=== PATIENT | male | born 1975 | race Asian ===

== ENCOUNTER → 2018-04-29 | Outpatient (REF) | payer MEDICARE, MEDICAID ==
[~2018-04-29] MED LIST: ACTOS30 MG PO; ACTOS45 M1 PO; ACTOS45 MG PO; ALDACTONE25 MG PO; AMARYL2 MG PO; BD INSULIN XX; CAPTOPRIL50 MG PO; CARDIZEM CD240 MG PO; CARDURA4 MG PO; CLONIDINE HCL0.2 MG PO; CLONIDINE0.1 MG PO; DIOVAN320 MG PO; DYAZIDE1 CAP PO; GLIPIZIDE10 MG PO; GLUCOPHAGE1000 MG PO; HYDRALAZINE50 MG PO; HYDROCHLOROT25 MG PO; KLOR-CON 1010 ME1 PO; LANTUS100 MG/ML SC; LASIX 40 MG TAB40 MG PO; LISINOPRIL40 MG PO; LOSARTAN POT100 MG PO; LOVASTATIN20 M1 PO; METOPROL TAR100 M1 PO; NOVOFINE32 GX6MM SC; PROCARDIA XL60 MG PO; TOPROL XL100 MG PO; TRIAM/HCTZ1 CAP PO; TRIAMT/HCTZ1 TAB PO; VICTOZA18 MG/3 ML SC
[2018-04-29 08:14] LABS: HEMATOCRIT 51.1 % (39.0-50.0); IMMATURE GRANULOCYTES 0.4 % (0.0-5.0); MEAN CELL VOLUME 88.4 fL CALC (80.0-100.0); MEAN CORPUSCULAR HGB 29.4 pG CALC (26.0-32.0); MEAN CORPUSCULAR HGB CONC 33.3 g/L CALC (32.0-36.0); NEUT# 4.8 thou/uL (1.82-7.42); RED BLOOD COUNT 5.78 mill/uL (4.70-6.10); RED CELL DISTRI WIDTH 12.4 % (11.5-15.5)
[2018-04-29 09:17] LABS: ALBUMIN 3.8 g/dL (3.2-5.0); ALKALINE PHOSPHATASE 69 u/l (38-126); ANION GAP 14 (6-22 (CALC)); BILIRUBIN, TOTAL 0.7 mg/dL (0.0-1.4); BUN 16 mg/dL (9-20); BUN/CREATININE RATIO 16 (12-20 (CALC)); CALCULATED LDLCHOLESTEROL 104 mg/dL (62-129 (CALC)); CARBON DIOXIDE 23 mmol/l (22-30); CHLORIDE 108 mmol/l (95-108); CHOLESTEROL HDL RATIO 4.3 (<4.4 (CALC)); GFR > 60 ML/MIN (>=60 (CALC)); GFR FOR AFR.AMER. > 60 ML/MIN (>=60 (CALC)); HDL CHOLESTEROL 41 mg/dL (>=40); SGOT/AST 14 u/l (17-59); SODIUM 142 mmol/l (137-146); TOTAL CHOLESTEROL 175 mg/dl (0-199); TOTAL PROTEIN 6.5 g/dL (6.3-8.2); TOTAL TRIGLYCERIDES 152 mg/dl (30-149); VLDL CHOLESTROL 30 mg/dl (5-56 (CALC))
== END | disposition home or self-care (01) ==
LOC: LAB 06:51
PROVIDERS: ATTEND Nurse Practitioner Family
DX: I10 Essential (primary) hypertension (principal); E11.9 Type 2 diabetes mellitus without complications; E78.2 Mixed hyperlipidemia

== ENCOUNTER 2019-09-08 06:49 | Day surgery (SDC) | payer MEDICARE, MEDICAID ==
[~2019-09-08] VITALS: Ht 170.2 cm; Wt 106.1 kg
[~2019-09-08 06:49] MED LIST changes: +BYDUREON2 MG SC; +FISH OIL1000 MG PO; +TERAZOSIN5 MG PO; +TRESIBA100 UNIT/M SC; +VITAMIN C500 M5 PO
[2019-09-08 10:08] VITALS: BP 163/93
== END 2019-09-08 10:25 | disposition home or self-care (01) ==
LOC: ORM 06:49
PROVIDERS: ATTEND Urology
PROC: 0VTTXZZ Resection of Prepuce, External Approach (ICD-10-PCS; principal; 2019-09-08)
DX: N47.1 Phimosis (principal); F84.0 Autistic disorder; I10 Essential (primary) hypertension; E11.51 Type 2 diabetes mellitus with diabetic peripheral angiopathy without gangrene; E88.81 Metabolic syndrome and other insulin resistance; E66.01 Morbid (severe) obesity due to excess calories; Z68.35 Body mass index [BMI] 35.0-35.9, adult; Z79.4 Long term (current) use of insulin

== ENCOUNTER 2020-04-27 16:11 | Emergency (ER) | payer MEDICARE, MEDICAID ==
[~2020-04-27] VITALS: Ht 170.2 cm; Wt 122.0 kg
[2020-04-27 18:13] LABS: HEMATOCRIT 43.5 % (39.0-50.0); HEMOGLOBIN 14.3 g/dl (14.0-18.0); IMMATURE GRANULOCYTES 0.4 % (0.0-5.0); MEAN CORPUSCULAR HGB 28.3 pG CALC (26.0-32.0); MEAN CORPUSCULAR HGB CONC 32.9 g/dL CAL (32.0-36.0); NEUT# 11.65 thou/uL (1.82-7.42); RED BLOOD COUNT 5.06 mill/uL (4.70-6.10); RED CELL DISTRI WIDTH 13.2 % (11.5-15.5)
[2020-04-27 18:26] LABS: ALBUMIN 3.6 g/dL (3.2-5.0); ALKALINE PHOSPHATASE 78 u/l (38-126); ANION GAP 11 (6-22 (CALC)); BILIRUBIN, TOTAL 0.6 mg/dL (0.0-1.4); BUN 15 mg/dL (9-20); BUN/CREATININE RATIO 11 (12-20 (CALC)); CARBON DIOXIDE 26 mmol/l (22-30); CHLORIDE 103 mmol/l (95-108); CREATININE 1.4 mg/dL (0.7-1.3); GFR 55 ML/MIN (>=60 (CALC)); GFR FOR AFR.AMER. > 60 ML/MIN (>=60 (CALC)); LIPASE 92 u/l (23-300); POTASSIUM 3.9 mmol/l (3.5-5.1); SGOT/AST 20 u/l (17-59); SODIUM 136 mmol/l (137-146); TOTAL PROTEIN 6.6 g/dL (6.3-8.2)
[2020-04-27 18:27] LABS: ACT PARTIAL THROMBO TIME 24.1 SECONDS (20.0-32.5); PROTHROMBIN TIME 10.4 SECONDS (9.0-12.5)
[2020-04-27 19:32] LABS: URINE BILIRUBIN - DIPSTICK NEGATIVE (NEGATIVE); URINE BLOOD DIPSTICK SMALL (NEGATIVE); URINE COLOR YELLOW; URINE GLUCOSE - DIPSTICK 250 mg/dL (NEGATIVE); URINE KETONE NEGATIVE (NEGATIVE); URINE LEUK ESTERASE NEGATIVE (NEGATIVE); URINE NITRITE - DIPSTICK NEGATIVE (Negative); URINE PH 6.5 (4.5-8.0); URINE PROTEIN - DIPSTICK >=300 mg/dL (NEG-TRACE); URINE UROBILINOGEN - DIPSTICK 0.2 E.U./dL (0.2)
[2020-04-27 19:45] LABS: URINE BACTERIA FEW hpf; URINE SQUAMOUS EPITHELIAL CELL FEW EPI/hpf (0-FEW)
[2020-04-27] MEDS ORDERED: AZITHROMYCIN500 MG PO (20:03)
[2020-04-27 20:25] VITALS: BP 160/94
== END 2020-04-27 20:25 | disposition home or self-care (01) ==
LOC: ED 16:11
DX: J18.9 Pneumonia, unspecified organism (principal); E11.9 Type 2 diabetes mellitus without complications; I10 Essential (primary) hypertension; F41.9 Anxiety disorder, unspecified; F84.0 Autistic disorder; R62.50 Unspecified lack of expected normal physiological development in childhood; Z79.4 Long term (current) use of insulin
CPT/HCPCS: Q9967

== ENCOUNTER 2020-08-08 12:16 | Emergency (ER) | payer MEDICARE, MEDICAID ==
[~2020-08-08] VITALS: Ht 170.2 cm; Wt 112.7 kg
[~2020-08-08 12:16] MED LIST changes: +AZITHROMYCIN500 MG PO
[2020-08-08 12:54] LABS: HEMATOCRIT 41.7 % (39.0-50.0); HEMOGLOBIN 13.6 g/dl (14.0-18.0); IMMATURE GRANULOCYTES 0.5 % (0.0-5.0); MEAN CELL VOLUME 86.2 fL CALC (80.0-100.0); MEAN CORPUSCULAR HGB 28.1 pG CALC (26.0-32.0); MEAN CORPUSCULAR HGB CONC 32.6 g/dL CAL (32.0-36.0); NEUT# 10.25 thou/uL (1.82-7.42); RED BLOOD COUNT 4.84 mill/uL (4.70-6.10); RED CELL DISTRI WIDTH 13.2 % (11.5-15.5)
[2020-08-08] MEDS ORDERED: OZEMPIC2 MG/1.5 M (13:01)
[2020-08-08] MEDS ORDERED: LASIX 20 MG TAB20 MG PO (13:02)
[2020-08-08] MEDS ORDERED: TERAZOSIN1 MG PO (13:02)
[2020-08-08] MEDS ORDERED: DOCUSATE CAL240 MG PO (13:03)
[2020-08-08 13:13] LABS: ALBUMIN 3.3 g/dL (3.2-5.0); BILIRUBIN, TOTAL 0.5 mg/dL (0.0-1.4); CREATININE 1.6 mg/dL (0.7-1.3); POTASSIUM 4.1 mmol/l (3.5-5.1); TOTAL PROTEIN 6.5 g/dL (6.3-8.2)
[2020-08-08 13:36] LABS: URINE BILIRUBIN - DIPSTICK NEGATIVE (NEGATIVE); URINE BLOOD DIPSTICK TRACE-LYSED (NEGATIVE); URINE COLOR YELLOW; URINE GLUCOSE - DIPSTICK 250 mg/dL (NEGATIVE); URINE KETONE NEGATIVE (NEGATIVE); URINE LEUK ESTERASE NEGATIVE (NEGATIVE); URINE PROTEIN - DIPSTICK >=300 mg/dL (NEG-TRACE); URINE SPECIFIC GRAVITY 1.025; URINE UROBILINOGEN - DIPSTICK 0.2 E.U./dL (0.2)
[2020-08-08 13:38] LABS: URINE EPITHELIAL CELLS FEW EPI/hpf (0-FEW); URINE MUCUS MODERATE hpf (NONE-FEW); URINE NITRITE - DIPSTICK NEGATIVE (Negative); URINE RBC 0-2 RBC/hpf (0-5)
[2020-08-08] MEDS ORDERED: ATIVAN0.5 MG PO (16:32)
[2020-08-08 16:38] VITALS: BP 170/84
== END 2020-08-08 16:48 | disposition home or self-care (01) ==
LOC: ED 12:16
PROVIDERS: Emergency Medicine
DX: F41.9 Anxiety disorder, unspecified (principal); I10 Essential (primary) hypertension; E11.9 Type 2 diabetes mellitus without complications; F84.0 Autistic disorder; Z79.4 Long term (current) use of insulin; Z20.822 Contact with and (suspected) exposure to COVID-19
CPT/HCPCS: Q9967

== ENCOUNTER 2022-09-26 14:50 | Inpatient (IN) | payer MEDICARE, MEDICAID ==
[2022-09-26] VITALS (28 sets, daily range): BP systolic 149–183; BP diastolic 89–112
[~2022-09-26] VITALS: Ht 170.2 cm; Wt 113.2 kg
[~2022-09-26 14:50] MED LIST changes: +ATIVAN0.5 MG PO; +DOCUSATE CAL240 MG PO; +LASIX 20 MG TAB20 MG PO; +OZEMPIC2 MG/1.5 M; +TERAZOSIN1 MG PO
[2022-09-26 16:38] LABS: BASO% 0.6 % (0-3); HEMATOCRIT 38.2 % (39.0-50.0); HEMOGLOBIN 12.8 g/dl (14.0-18.0); IMMATURE GRANULOCYTES 0.2 % (0.0-5.0); LYMPH% 9.6 % (15-41); MEAN CORPUSCULAR HGB 29.5 pG CALC (26.0-32.0); MEAN CORPUSCULAR HGB CONC 33.5 g/dL CAL (32.0-36.0); MONO% 6.7 % (2-13); NEUT# 7.41 thou/uL (1.82-7.42); NEUT% 79.9 % (42-76); RED BLOOD COUNT 4.34 mill/uL (4.70-6.10); RED CELL DISTRI WIDTH 12.4 % (11.5-15.5)
[2022-09-26 16:45] LABS: ALBUMIN 3.6 g/dL (3.2-5.0); POTASSIUM 4.4 mmol/l (3.5-5.1); TOTAL PROTEIN 6.6 g/dL (6.3-8.2)
[2022-09-26 16:47] LABS: BILIRUBIN, TOTAL 0.8 mg/dL (0.2-1.3); CREATININE 4.4 mg/dL (0.7-1.3)
[2022-09-26 16:57] LABS: PROTHROMBIN TIME 9.8 SECONDS (9.0-12.5)
[2022-09-26 17:21] LABS: URINE BILIRUBIN - DIPSTICK NEGATIVE (NEGATIVE); URINE COLOR YELLOW; URINE GLUCOSE - DIPSTICK NEGATIVE (NEGATIVE); URINE KETONE Negative (NEGATIVE); URINE PH 6.5 (4.5-8.0); URINE PROTEIN - DIPSTICK >=300 mg/dL (NEG-TRACE); URINE UROBILINOGEN - DIPSTICK 0.2 E.U./dL (0.2)
[2022-09-26 17:22] LABS: URINE BLOOD DIPSTICK SMALL (NEGATIVE); URINE LEUK ESTERASE NEGATIVE (NEGATIVE); URINE NITRITE - DIPSTICK NEGATIVE (Negative)
[2022-09-26 17:27] LABS: URINE WBC 0-2 WBC/hpf (0-5)
[2022-09-26] MEDS ORDERED: FARXIGA5 MG PO (21:03)
[2022-09-26] MEDS ORDERED: COREG3.125 MG PO (21:03)
[2022-09-26] MEDS ORDERED: KERENDIA20 MG PO (21:04)
[2022-09-26] MEDS ORDERED: ALLOPURINOL100 MG PO (21:05)
[2022-09-26] MEDS ORDERED: COLCHICINE0.6 M2 PO (21:06)
[2022-09-26] MEDS ORDERED: FIASP100 UNIT/M (21:06)
[2022-09-26] MEDS ORDERED: LOVASTATIN20 M1 PO (21:09)
[2022-09-27] VITALS (9 sets, daily range): BP systolic 118–158; BP diastolic 78–99
[2022-09-28 03:58] VITALS: BP 148/86
[2022-09-28 04:00] VITALS: BP 148/86
[2022-09-28 05:10] LABS: BASO% 0.8 % (0-3); EOS% 2.6 % (0-8); HEMATOCRIT 36.8 % (39.0-50.0); HEMOGLOBIN 12.4 g/dl (14.0-18.0); IMMATURE GRANULOCYTES 0.3 % (0.0-5.0); LYMPH% 29.6 % (15-41); MEAN CELL VOLUME 89.1 fL CALC (80.0-100.0); MEAN CORPUSCULAR HGB CONC 33.7 g/dL CAL (32.0-36.0); MONO% 8.6 % (2-13); NEUT# 4.25 thou/uL (1.82-7.42); NEUT% 58.1 % (42-76); RED BLOOD COUNT 4.13 mill/uL (4.70-6.10); RED CELL DISTRI WIDTH 12.7 % (11.5-15.5)
[2022-09-28 05:29] LABS: ALBUMIN 2.9 g/dL (3.2-5.0); CREATININE 3.8 mg/dL (0.7-1.3)
[2022-09-28 05:33] LABS: CREATININE 3.9 mg/dL (0.7-1.3); TOTAL PROTEIN 5.3 g/dL (6.3-8.2)
[2022-09-28 05:35] LABS: ALBUMIN 2.8 g/dL (3.2-5.0); BILIRUBIN, TOTAL 0.4 mg/dL (0.2-1.3); POTASSIUM 3.4 mmol/l (3.5-5.1)
[2022-09-28 05:38] LABS: POTASSIUM 3.4 mmol/l (3.5-5.1)
[2022-09-28 06:35] VITALS: BP 114/71; BP 143/91
[2022-09-28 11:00] VITALS: BP 133/65
[2022-09-28 14:40] VITALS: BP 144/85
[2022-09-28 19:16] VITALS: BP 152/92
[2022-09-29] VITALS (11 sets, daily range): BP systolic 161–189; BP diastolic 92–108
[2022-09-29 05:18] LABS: BASO% 0.6 % (0-3); EOS% 6.2 % (0-8); HEMATOCRIT 36.3 % (39.0-50.0); HEMOGLOBIN 12.4 g/dl (14.0-18.0); IMMATURE GRANULOCYTES 0.4 % (0.0-5.0); LYMPH% 25.2 % (15-41); MEAN CELL VOLUME 88.8 fL CALC (80.0-100.0); MEAN CORPUSCULAR HGB 30.3 pG CALC (26.0-32.0); MEAN CORPUSCULAR HGB CONC 34.2 g/dL CAL (32.0-36.0); MONO% 9.1 % (2-13); NEUT# 3.96 thou/uL (1.82-7.42); NEUT% 58.5 % (42-76); RED BLOOD COUNT 4.09 mill/uL (4.70-6.10); RED CELL DISTRI WIDTH 12.3 % (11.5-15.5)
[2022-09-29 05:26] LABS: BILIRUBIN, TOTAL 0.3 mg/dL (0.2-1.3); CREATININE 3.8 mg/dL (0.7-1.3); POTASSIUM 3.8 mmol/l (3.5-5.1); TOTAL PROTEIN 5.7 g/dL (6.3-8.2)
[2022-09-29 05:29] LABS: MAGNESIUM 2.2 mg/dL (1.6-2.3)
[2022-09-29] MEDS ORDERED: AMOX/K CLAV875 M1 PO (14:37)
== END 2022-09-29 15:05 | disposition home or self-care (01) | DRG 178 ==
LOC: ED 14:50 → ED-I 18:07 → ED 18:37 → MS2 18:38
PROVIDERS: Family Medicine; Internal Medicine Nephrology; Nurse Practitioner Family; ADMIT Internal Medicine; ATTEND Internal Medicine
DX: J69.0 Pneumonitis due to inhalation of food and vomit (principal); E87.20 Acidosis, unspecified; F84.0 Autistic disorder; N18.4 Chronic kidney disease, stage 4 (severe); N17.9 Acute kidney failure, unspecified; E86.9 Volume depletion, unspecified; I12.9 Hypertensive chronic kidney disease with stage 1 through stage 4 chronic kidney disease, or unspecified chronic kidney disease; E11.22 Type 2 diabetes mellitus with diabetic chronic kidney disease; D63.1 Anemia in chronic kidney disease; F41.0 Panic disorder [episodic paroxysmal anxiety]; F79 Unspecified intellectual disabilities; E87.6 Hypokalemia; I87.2 Venous insufficiency (chronic) (peripheral); Z79.84 Long term (current) use of oral hypoglycemic drugs; Z79.4 Long term (current) use of insulin
CPT/HCPCS: A9540; J1650